=== PATIENT | female | born 1980 ===

== ENCOUNTER 2018-03-01 07:17 | Day surgery (SDC) | payer BC ==
[~2018-03-01 07:17] MED LIST: Buffered Lidocaine 0.9% SYRIN* 5 ML/SYR SYRINGE INTRADERM ONE
[2018-03-01] MEDS ORDERED: ceFAZolin 2 GM PREMIX (*) 2 GM/50 ML BAG IVPB ONE (07:29)
[2018-03-01] MEDS ORDERED: fentaNYL* 50 MCG/ML 2 ML VIAL (100 MCG VIAL) ONE ×2 (08:03→09:10)
[2018-03-01] MEDS ORDERED: Midazolam* 1 MG/ML 2 ML VIAL (2 MG) ONE ×3 (08:03→09:11)
[2018-03-01] MEDS ORDERED: Propofol* 10 MG/ML 20 ML BTL IV PUSH ONE ×5 (08:03→10:04)
[2018-03-01] MEDS ORDERED: Lidocaine 2% PF* 10 ML AMP ONE ×2 (08:11→08:12)
[2018-03-01] MEDS ORDERED: EPINEPHRINE 1 MG/ML 1 ML VIAL ONE (08:11)
[2018-03-01] MEDS ORDERED: Sodium Bicarbonate 8.4% SYR* 10 ML SYRINGE ONE (08:12)
[2018-03-01] MEDS ORDERED: Ondansetron INJ* 2 MG/ML VIAL ONE (08:48)
[2018-03-01] MEDS ORDERED: Lidocaine 2% PF * 5 ML VIAL ONE (09:16)
[2018-03-01] MEDS ORDERED: fentaNYL* 50 MCG/ML 2 ML VIAL (100 MCG VIAL) IV PRN (09:39)
[2018-03-01] MEDS ORDERED: Naloxone* 0.4 MG/ML 1 ML VIAL IV PRN (09:39)
[2018-03-01] MEDS ORDERED: DiMENhydriNATE IV* 50 MG/ML VIAL IV PUSH PRN (09:39)
[2018-03-01 11:34] VITALS: BP 131/91
--- NOTE | 2018-03-01 18:04 | OP ---
DATE OF OPERATION: 03/01/18 - [facility] DATE OF : 82 SURGEON: Juancho Hart MD ANESTHESIA: Local plus MAC. PRE-OP DIAGNOSIS: Symptomatic varicose veins of the left lower extremity. POST-OP DIAGNOSIS: Symptomatic varicose veins of the left lower extremity. OPERATIVE PROCEDURE: Microphlebectomy, greater than 20 incisions. ESTIMATED BLOOD LOSS: Approximately 20 cc. DESCRIPTION OF PROCEDURE: The patient was taken to the procedure room. She had undergone marking of the varicose veins and proper identification of the left lower extremity. The patient was then placed in the supine position and she was prepped and draped in the usual sterile fashion and under sedation, lidocaine 1% was used to infiltrate in the surrounding area of the varicosities and subsequently we used tumescent local anesthesia in the surrounding area of the varicosities that extended from the superior anterolateral thigh, anterolateral leg, medial leg, posterior leg. After the local anesthetic had been completed, we then proceeded to remove the varicose veins by small incision in stab avulsion technique. Greater than 20 incisions were performed and after this was completed, incisions were closed with 5-0 Prolene and Steri- Strips. A light pressure dressing was applied to the left lower extremity. The patient tolerated the procedure well and she was taken in good condition to the recovery room. [id number]/[facility] #: [id number] ATA
== END 2018-03-01 11:35 | disposition home or self-care (01) ==
LOC: OR 07:17
PROVIDERS: ATTEND Surgery
DX: I83.892 Varicose veins of left lower extremity with other complications (principal); Z68.42 Body mass index [BMI] 45.0-49.9, adult; I10 Essential (primary) hypertension; E03.9 Hypothyroidism, unspecified
CPT/HCPCS: 81025; 88300; J0690; J2001; J2250; J2405; J2704; J3010